=== PATIENT | female | born 2000 | race American Indian/Alaskan Native ===

== ENCOUNTER 2022-04-18 15:20 | Emergency (ER) | payer OTHER ==
[2022-04-18] MEDS ORDERED: ALBUTEROL 2.5 MG/3 ML NEBU IH ONE (16:25)
[2022-04-18] MEDS ORDERED: predniSONE 20 MG TAB PO ONE (16:26)
--- NOTE | 2022-04-18 16:26 | Emergency Department Report ---
Minor Respiratory - HPI Chief Complaint: Upper Respiratory Infection Stated Complaint: COUGH/CONJESTION Time Seen by Provider: 04/18/22 16:25 Duration: 3 Days Pain Location: Chest Severity: mild Minor Respiratory: Yes Rhinorrhea, Yes Sore Throat, Yes Able to Tolerate Fluids, Yes Cough, Yes Sick Contacts, No Ear Pain, No Hemoptysis, No Chest Pain, No Shortness of Breath, No Fever Other History: Patient is a 22-year-old that comes to the emergency room with hoarseness and cough. She denies any history of asthma. She has no purulent sputum. No fever or chills. No abdominal pain. No dysuria. No vaginal discharge. No back pain. No nausea vomiting. She denies any dental pain. Denies sinus pressure or headache. ED Review of Systems ROS: Stated complaint: COUGH/CONJESTION Other details as noted in HPI Comment: All other systems reviewed and negative ED Past Medical Hx - Past Medical History Previous Medical History?: No - Surgical History Past Surgical History?: No - Family History Family history: no significant - Social History Smoking Status: Never Smoker Substance Use Type: None - Medications Home Medications: Home Medications Medication Instructions Recorded Confirmed Last Taken Type Albuterol Mdi (or & Nicu Only) 2 puff IH QID PRN #1 inhalation 04/18/22 Unknown Rx [ProAir HFA Inhaler] Benzonatate [Tessalon Perles] 100 mg PO Q12H PRN #20 capsule 04/18/22 Unknown Rx Cetirizine HCl [ZyrTEC] 10 mg PO DAILY #30 capsule 04/18/22 Unknown Rx Fluticasone [Flonase] 1 spray NS QDAY #1 bottle 04/18/22 Unknown Rx predniSONE [Deltasone] 20 mg PO DAILY #5 tablet 04/18/22 Unknown Rx Minor Respiratory Exam - Exam General: Vital signs noted. No distress. Alert and acting appropriately. HEENT: Yes Pharyngeal Exudates, Yes Moist Mucous Membranes, No Pharyngeal Erythema, No Rhinorrhea, No Conjuctival Injection, No Frontal Tenderness, No Maxillary Tenderness Ear: Neither TM Bulge, Neither TM Erythema, Neither EAC Pain, Neither EAC Discharge Neck: Yes Supple, No Adenopathy Lungs: Yes Good Air Exchange, Yes Wheezes, No Ronchi, No Stridor, No Cough, No Labored Respirations, No Retractions, No Use of Accessory Muscles, No Other Abnormal Lung Sounds Heart: Yes Regular, No Murmur Abdomen: Yes Normal Bowel Sounds, No Tenderness, No Peritoneal Signs Skin: No Rash, No Edema Neurologic: Alert and oriented, no deficits. Musculoskeletal: Unremarkable. ED Course Vital Signs 04/18/22 15:59 Temperature 98.9 F Pulse Rate 81 Respiratory 18 Rate Blood Pressure 128/67 O2 Sat by Pulse 97 Oximetry ED Medical Decision Making - Radiology Data Radiology results: report reviewed, image reviewed No acute process - Medical Decision Making Vital Signs 04/18/22 15:59 Temperature 98.9 F Pulse Rate 81 Respiratory 18 Rate Blood Pressure 128/67 O2 Sat by Pulse 97 Oximetry X-ray without infiltrate. Patient has mild upper airway wheezing and hoarseness. She is been given a breathing treatment and prednisone in the ER. She is ambulatory, not ill nontoxic and taking p.o. Patient being discharged home with discharge plan of care including diet, activity, medications and follow-up. She verbalizes understanding of plan of care. - Differential Diagnosis URI Critical care attestation.: If time is entered above; I have spent that time in minutes in the direct care of this critically ill patient, excluding procedure time. ED Disposition Clinical Impression: Bronchitis, Viral respiratory illness Disposition: 01 HOME / SELF CARE / HOMELESS Is pt being admited?: No Does the pt Need Aspirin: No Condition: Stable Instructions: Viral Respiratory Infection, [id number], Chronic Bronchitis (ED) Additional Instructions: meds as ordered today diet and activity as tolerated stay well hydrated with water motrin or tylenol for pain follow up with pcp in 72 hours to make sure you are getting better referral below Prescriptions: predniSONE [Deltasone] 20 mg PO DAILY #5 tablet Fluticasone [Flonase] 1 spray NS QDAY #1 bottle Albuterol Mdi (or & Nicu Only) [ProAir HFA Inhaler] 2 puff IH QID PRN #1 inhalat ion PRN Reason: Shortness Of Breath Benzonatate [Tessalon Perles] 100 mg PO Q12H PRN #20 capsule PRN Reason: Cough Cetirizine HCl [ZyrTEC] 10 mg PO DAILY #30 capsule Referrals: HELLEN ESPARZA MD [Staff Physician] - 3-5 Days Forms: Work/School Release Form(ED) Time of Disposition: 16:26
--- NOTE | 2022-04-18 16:30 | XRay Report ---
CHEST 2 VIEWS INDICATION / CLINICAL INFORMATION: cough. COMPARISON: None available. FINDINGS: SUPPORT DEVICES: None. HEART / MEDIASTINUM: No significant abnormality. LUNGS / PLEURA: No significant pulmonary or pleural abnormality. No pneumothorax. ADDITIONAL FINDINGS: No significant additional findings. IMPRESSION: 1. No acute findings. Signer Name: Boone Keller DO Signed: 04/18/2022 4:25 PM Workstation Name: [id number]
[2022-04-18 17:37] VITALS: BP 128/74
== END 2022-04-18 17:35 | disposition home or self-care (01) ==
LOC: ED 15:20
DX: J40 Bronchitis, not specified as acute or chronic (principal); J98.9 Respiratory disorder, unspecified
CPT/HCPCS: 71046; 94640; 99283

== ENCOUNTER 2022-06-25 18:25 | Emergency (ER) | payer OTHER ==
--- NOTE | 2022-06-26 03:13 | Emergency Department Report ---
ED ENT HPI - General Chief complaint: Sore Throat Stated complaint: SORE INSIDE MOUTH Time Seen by Provider: 06/26/22 02:21 Source: patient Mode of arrival: Ambulatory Limitations: No Limitations - History of Present Illness Initial comments: Patient presents with oral sores throat pain over a week worsening. Pain is worse with chewing, no fever chills, no nausea vomiting headache dizziness or vision changes. No sick contacts, no cough cold congestion, she denies being . MD complaint: sore throat - Related Data Previous Rx's Medication Instructions Recorded Last Taken Type Albuterol Mdi (or & Nicu Only) 2 puff IH QID PRN #1 inhalation 04/18/22 Unknown Rx [ProAir HFA Inhaler] Benzonatate [Tessalon Perles] 100 mg PO Q12H PRN #20 capsule 04/18/22 Unknown Rx Cetirizine HCl [ZyrTEC] 10 mg PO DAILY #30 capsule 04/18/22 Unknown Rx Fluticasone [Flonase] 1 spray NS QDAY #1 bottle 04/18/22 Unknown Rx predniSONE [Deltasone] 20 mg PO DAILY #5 tablet 04/18/22 Unknown Rx Benzocaine/Menthol/Zinc Chlor 11.9 gm MM QID PRN #1 tube 06/26/22 Unknown Rx [Orajel 3X Toothache-Gum Gel] Ibuprofen [Motrin 800 MG tab] 800 mg PO Q8HR PRN #20 tablet 06/26/22 Unknown Rx Allergies Allergy/AdvReac Type Severity Reaction Status Date / Time No Known Allergies Allergy Unverified 05/20/20 17:30 ED Dental HPI - General Chief complaint: Sore Throat Stated complaint: SORE INSIDE MOUTH Time Seen by Provider: 06/26/22 02:21 Source: patient Mode of arrival: Ambulatory Limitations: No Limitations - Related Data Previous Rx's Medication Instructions Recorded Last Taken Type Albuterol Mdi (or & Nicu Only) 2 puff IH QID PRN #1 inhalation 04/18/22 Unknown Rx [ProAir HFA Inhaler] Benzonatate [Tessalon Perles] 100 mg PO Q12H PRN #20 capsule 04/18/22 Unknown Rx Cetirizine HCl [ZyrTEC] 10 mg PO DAILY #30 capsule 04/18/22 Unknown Rx Fluticasone [Flonase] 1 spray NS QDAY #1 bottle 04/18/22 Unknown Rx predniSONE [Deltasone] 20 mg PO DAILY #5 tablet 04/18/22 Unknown Rx Benzocaine/Menthol/Zinc Chlor 11.9 gm MM QID PRN #1 tube 06/26/22 Unknown Rx [Orajel 3X Toothache-Gum Gel] Ibuprofen [Motrin 800 MG tab] 800 mg PO Q8HR PRN #20 tablet 06/26/22 Unknown Rx Allergies Allergy/AdvReac Type Severity Reaction Status Date / Time No Known Allergies Allergy Unverified 05/20/20 17:30 ED Review of Systems ROS: Stated complaint: SORE INSIDE MOUTH Other details as noted in HPI Constitutional: denies: chills, fever ENT: throat pain, dental pain Respiratory: denies: cough, orthopnea Cardiovascular: denies: chest pain, palpitations Endocrine: no symptoms reported Gastrointestinal: denies: abdominal pain, nausea, vomiting Genitourinary: denies: dysuria, frequency Musculoskeletal: denies: back pain, joint swelling Skin: denies: rash, lesions Neurological: denies: headache, weakness Psychiatric: denies: homicidal thoughts, suicidal thoughts ED Past Medical Hx - Social History Smoking Status: Never Smoker Substance Use Type: None - Medications Home Medications: Home Medications Medication Instructions Recorded Confirmed Last Taken Type Albuterol Mdi (or & Nicu Only) 2 puff IH QID PRN #1 inhalation 04/18/22 Unknown Rx [ProAir HFA Inhaler] Benzonatate [Tessalon Perles] 100 mg PO Q12H PRN #20 capsule 04/18/22 Unknown Rx Cetirizine HCl [ZyrTEC] 10 mg PO DAILY #30 capsule 04/18/22 Unknown Rx Fluticasone [Flonase] 1 spray NS QDAY #1 bottle 04/18/22 Unknown Rx predniSONE [Deltasone] 20 mg PO DAILY #5 tablet 04/18/22 Unknown Rx Benzocaine/Menthol/Zinc Chlor 11.9 gm MM QID PRN #1 tube 06/26/22 Unknown Rx [Orajel 3X Toothache-Gum Gel] Ibuprofen [Motrin 800 MG tab] 800 mg PO Q8HR PRN #20 tablet 06/26/22 Unknown Rx ED Physical Exam - General Limitations: No Limitations General appearance: alert, in no apparent distress - Head Head exam: Present: atraumatic - Eye Eye exam: Present: normal appearance - ENT ENT exam: Present: normal exam, other (There is impaction of her bilateral wisdom tooth, tender gums, without any signs of active infection. Pharyngeal erythema, no exudates, no redness,). Absent: normal orophraynx (Swallowing without difficulty speech is clear no trismus no drooling) - Neck Neck exam: Present: normal inspection. Absent: lymphadenopathy - Respiratory Respiratory exam: Present: normal lung sounds bilaterally. Absent: respiratory distress, wheezes - Cardiovascular Cardiovascular Exam: Present: regular rate, normal rhythm - GI/Abdominal GI/Abdominal exam: Present: soft. Absent: distended, tenderness - Extremities Exam Extremities exam: Present: normal inspection, full ROM - Back Exam Back exam: Present: normal inspection, full ROM - Neurological Exam Neurological exam: Present: alert, oriented X3, CN II-XII intact, normal gait - Psychiatric Psychiatric exam: Present: normal affect, normal mood - Skin Skin exam: Present: warm, dry, intact, normal color. Absent: cyanosis, diaphoretic ED Course Vital Signs 06/25/22 20:59 Temperature 99.1 F Pulse Rate 84 Respiratory 18 Rate Blood Pressure 118/74 [Right] O2 Sat by Pulse 100 Oximetry ED Medical Decision Making - Medical Decision Making Based on exam negative strep, no indication for antibiotics at this time, supportive therapy pain management patient does have to follow-up with dentist to have wisdom teeth extracted. Pain addressed in the emergency department with improvement. Patient remained stable nontoxic-appearing, afebrile, ambulating steadily without assistance. Gone over ED findings with patient as well as plan for follow-up. Also discussed return precautions with patient, all questions and concerns addressed. Patient is stable to be discharged follow-up outpatient. Audio voice dictation device used, hence the chart might contain some dictation errors, mispronunciations, wrong spelling and wrong verbiage. Critical care attestation.: If time is entered above; I have spent that time in minutes in the direct care of this critically ill patient, excluding procedure time. ED Disposition Clinical Impression: Pain, dental, Dental impaction Disposition: HOME / SELF CARE / HOMELESS Is pt being admited?: No Does the pt Need Aspirin: No Condition: Stable Instructions: Impacted Molar Prescriptions: Ibuprofen [Motrin 800 MG tab] 800 mg PO Q8HR PRN #20 tablet PRN Reason: Pain , Severe (7-10) Referrals: [facility] [Outside] - 3-5 Days
[2022-06-26] MEDS ORDERED: LIDOCAINE VISCOUS 2% 15 ML ORAL LIQD PO ONE (04:35)
[2022-06-26] MEDS ORDERED: HYDROcodone/ACETAMINOPHEN 5-325 MG TAB PO ONE (04:35)
[2022-06-26 06:00] VITALS: BP 121/76
== END 2022-06-26 06:00 | disposition home or self-care (01) ==
LOC: ED 18:25
DX: K08.89 Other specified disorders of teeth and supporting structures (principal); K01.1 Impacted teeth
CPT/HCPCS: 87116; 87430; 99283